=== PATIENT | male | born 1985 | race Hispanic/Latino ===

== ENCOUNTER → 2020-07-30 11:05 | Outpatient (CLI) | payer OTHER, SELFPAY ==
--- NOTE | 2020-07-30 | DI.MRI.S_ITS ---
PROCEDURE: MR HIP RT WO CON INDICATIONS: PAIN IN RIGHT HIP TECHNIQUE: Noncontrast coronal T1 spin echo and STIR through the bony pelvis. Coronal and axial T2 fast spin echo with fat saturation, sagittal T1 spin echo, and oblique axial T2 fast spin echo with fat saturation through the hip. COMPARISON: None. FINDINGS: Image quality: Excellent. Bones and joints: There is right hip joint osteoarthritis with joint space narrowing, subchondral sclerosis and marginal osteophyte formation. Prominence of right femoral head neck junction is also seen which can be seen in the case of cam type femoral acetabular impingement. No intraosseous lesions or fractures. No avascular necrosis of the femoral heads. The visualized lower lumbar spine appears normally aligned. Tendons and ligaments: The gluteus medius and minimus tendons appear intact, without associated muscle atrophy. The nearby proximal iliotibial band also appears intact. The iliopsoas tendon appears intact, without adjacent bursal fluid collections or evidence for impingement syndrome. The origin of the hamstring tendon is intact at the ischial tuberosity, as well as the associated sacrotuberous ligament. The straight and reflected heads of the rectus femoris muscle origin appear intact, as well as the conjoint tendon. The ligamentum teres appears intact where visualized. Labrum and cartilage: Thinning of articulating cartilages of the femoral head is seen. In the absence of intra-articular contrast, there is suggestion of superior anterior right hip labral tear with tiny adjacent 2-3 millimeter perilabral cyst. The alpha angle of the femur is within normal limits at less than 55 degrees. Soft tissues: Visualized muscles demonstrate normal bulk and internal signal. Quadratus femoris muscle demonstrates no internal edema to suggest ischiofemoral impingement. The proximal sciatic neurovascular bundle appears normal adjacent to the hamstring tendons. No free pelvic fluid. Bladder wall thickness is normal. Genitourinary structures and bowel loops appear normal where visualized. IMPRESSION: 1. Mild to moderate right hip joint osteoarthritis. No fracture or dislocation. No evidence of avascular necrosis of femoral head. 2. Prominence of right femoral head neck junction which can be associated with CAM type femoral acetabular impingement. 3. Suggestion of focal superior anterior right hip labral tear with adjacent tiny 2-3 millimeter perilabral cyst. Dictated by: Al Baptiste M.D. on 08/01/2020 at 10:06 Approved by: Al Baptiste M.D. on 08/01/2020 at 10:26
== END ==
PROVIDERS: Referring Provider Physician Assistant Surgical; Visit Provider Physician Assistant Surgical
DX: M25.551 Pain in right hip (principal); M16.11 Unilateral primary osteoarthritis, right hip
CPT/HCPCS: 73721

== ENCOUNTER 2021-09-19 15:12 | Emergency (ER) | payer OTHER, SELFPAY ==
[2021-09-19 15:39] VITALS: BP 144/79; PULSE 77; RESP 97; TEMP 36.7; O2SAT 97; BMI 29.4
[2021-09-19 16:21] LABS: COVID19 -Nasal RAPID Negative (Negative)
--- NOTE | 2021-09-19 18:21 | ED_ITS ---
HPI - URI/Sore Throat <MILI Montesinos - Last Filed: 09/19/21 18:34> General Chief Complaint: Upper Respiratory Symptoms Stated Complaint: wants covid test Time Seen by Provider: 09/19/21 17:02 Source: patient Mode of arrival: Ambulatory Limitations: no limitations History of Present Illness HPI Narrative: The the patient is a 36-year-old male nonsmoker who denies pertinent medical history presents with a chief complaint of needing a COVID test. His recently return from taking care of her grandfather who is COVID positive. Is fully vaccinated with Pfizer, but has not had a booster yet. He has had coughing congestion and fatigue. His symptoms started about 3 days ago, but he lost his taste and smell yesterday. He states he feels better, but is concerned about going to work especially given that his is still sick and her direct COVID exposure. Review of Systems <JENNIFER Montesinos - Last Filed: 09/19/21 18:34> Review of Systems Narrative: GENERAL: See HPI HEENT: Denies sinus pain, ear pain, sore throat, difficulty swallowing, d izziness. RESPIRATORY: See HPI CARDIOVASCULAR: Denies chest pain, palpitations, orthopnea, edema, GASTROINTESTINAL: Denies nausea, vomiting, abdominal pain, diarrhea, constipation, melena. : Denies dysuria, frequency, incontinence, hematuria, urinary retention. MUSCULOSKELETAL: denies weakness, joint pain, or bony pain SKIN: Denies rash, skin lesions, or other NEUROLOGIC: Denies weakness, headache, numbness, change in speech, confusion, seizures, incoordination. PSYCHIATRIC: No concerning psychosocial issues. 12 point review of systems is negative except for those stated above Patient History <MILI Montesinos - Last Filed: 09/19/21 18:34> Social History Smoking Status: Never smoker Smoking Status: Never smoker Substance Use Type: does not use Exam <MILI Montesinos Last Filed: 09/19/21 18:34> Narrative Exam Narrative: GENERAL: This is a well-nourished, well-developed patient, in no acute distress HEAD: Atraumatic. Normocephalic. No temporal or scalp tenderness. EYES: Pupils equal round and reactive. Extraocular motions intact. No scleral icterus. No injection or drainage. ENT: Nose without bleeding, purulent drainage or septal hematoma. Throat without erythema, tonsillar hypertrophy or exudate. Uvula midline. Airway patent. NECK: Trachea midline. No JVD or lymphadenopathy. Supple, nontender, no meningeal signs. CARDIOVASCULAR: Regular rate and rhythm RESPIRATORY: Clear to auscultation. Breath sounds equal bilaterally. No wheezes, rales, or rhonchi. Occasional dry cough. No increased respiratory effort. GASTROINTESTINAL: Abdomen soft, non-tender, nondistended. No hepato- splenomegaly, or palpable masses. No guarding. EXTREMITIES: No clubbing, cyanosis, or edema. No joint tenderness, effusion, or edema noted. NEURO: AOx3. SKIN: No rash or erythema on visible skin Initial Vital Signs Initial Vital Signs: Vital Signs Temperature 98.0 F 09/19/21 15:39 Pulse Rate 77 09/19/21 15:39 Respiratory Rate 97 H 09/19/21 15:39 Blood Pressure 144/79 H 09/19/21 15:39 Pulse Oximetry 97 09/19/21 15:39 <Tone Helm MD - Last Filed: 09/25/21 12:21> Initial Vital Signs Initial Vital Signs: Vital Signs Temperature 98.0 F 09/19/21 15:39 Pulse Rate 77 09/19/21 15:39 Respiratory Rate 97 H 09/19/21 15:39 Blood Pressure 144/79 H 09/19/21 15:39 Pulse Oximetry 97 09/19/21 15:39 Course <MILI Montesinos - Last Filed: 09/19/21 18:34> Orders Ordered: ED Orders 09/19/21 15:47 COVID19 -Nasal swab/Pre-Proc Stat Vital Signs Vital signs: Vital Signs - 8 hr 09/19/21 15:39 Temperature 98.0 F Pulse Rate 77 Respiratory Rate 97 H Blood Pressure 144/79 H Pulse Oximetry 97 <Tone Helm MD - Last Filed: 09/25/21 12:21> Orders Ordered: ED Orders 09/19/21 15:47 COVID19 -Nasal swab/Pre-Proc Stat Vital Signs Vital signs: Vital Signs - 8 hr 09/19/21 15:39 Temperature 98.0 F Pulse Rate 77 Respiratory Rate 97 H Blood Pressure 144/79 H Pulse Oximetry 97 [facility] - URI/Sore Throat <Ellen Fisher, C[employer] ROOM CLERK-BC - Last Filed: 09/19/21 18:34> Lab Data Labs: Lab Results 09/19/21 Range/Units 15:47 SARS-CoV-2 (PCR) Negative (Negative) MDM Narrative Medical decision making narrative: The patient is a 36-year-old male who presents with a chief complaint of COVID exposure and possible COVID. He does test negative today, however he was exposed and has symptoms. Thus I did give him a work note. Discussed at length rest, pushing fluids, use [id number] medications as needed and able. Discussed come back to ER for acute concerns. Patient has no questions or concerns upon discharge and states understanding of return precautions as well as follow-up care. <Tone Helm MD - Last Filed: 09/25/21 12:21> Lab Data Labs: Lab Results 09/19/21 Range/Units 15:47 SARS-CoV-2 (PCR) Negative (Negative) Discharge Plan Departure Patient Disposition: Home Clinical Impression: Upper respiratory infection Instructions: DI for Viral Upper Respiratory Infection -- Adult, Coronavirus Disease 2019, Can COVID-19 be prevented? Activity Restrictions/Additional Instructions: Thank you for trusting us with your care today. As discussed, you tested negative for COVID today. However given that your exposed and had symptoms such as loss of taste and smell I have given you a work note for several days off so you can quarantine. Please rest at home, push fluids etcetera. Please come back to the emergency department for any acute concerns. Stand Alone Forms: Work Release Note <Tone Heml MD - Last Filed: 09/25/21 12:21> Cosign ED Attending Cosignature Attestation: I was immediately available in the department for consultation. This documentation has been reviewed and I agree with assessment and plan. Supervised by Tone Helm MD
== END 2021-09-19 18:05 | disposition home or self-care (01) ==
PROVIDERS: Emergency Medicine; Emergency Provider Nurse Practitioner Family
DX: J06.9 Acute upper respiratory infection, unspecified (principal); Z20.822 Contact with and (suspected) exposure to COVID-19
CPT/HCPCS: 87635; 99281; 99282; C9803

== ENCOUNTER 2023-10-02 10:09 | Emergency (ER) | payer OTHER, SELFPAY ==
[2023-10-02 10:11] VITALS: BP 136/82; PULSE 98; RESP 16; TEMP 36.4; O2SAT 99; BMI 30.1
== END 2023-10-02 10:28 | disposition left against medical advice (07) ==
PROVIDERS: Emergency Provider Emergency Medicine
CPT/HCPCS: 99281

== ENCOUNTER 2024-07-01 11:59 | Emergency (ER) | payer OTHER, SELFPAY ==
[2024-07-01 12:11] VITALS: BP 142/81; PULSE 109; RESP 20; TEMP 36.1; O2SAT 97; BMI 30.8
--- NOTE | 2024-07-01 12:41 | ED_ITS ---
HPI - General Adult General Chief complaint: Abdominal Pain Stated complaint: vomiting t-3, abd pain Time Seen by Provider: 07/01/24 12:41 Source: patient Mode of arrival: Family Vehicle History of Present Illness HPI narrative: 39-year-old gentleman presents with nausea, vomiting, abdominal pain. Symptoms started on the with pain vomiting and diarrhea. He is seen [facility]. Given Imodium for the diarrhea. He took 1 dose which resolve the diarrhea and then continued to follow the instructions to take 1 every 4 hours for a total of 10 doses. He has not had a bowel movement since then. He has passed a small amount of gas. Does not feel like he has stool in his rectum, increasing abdominal pain since the , has been unable to keep anything down, tried some apple juice this morning and that too came up. Presents with significant abdominal pain behaviors, not complaining of fevers chills chest pain shortness for breath or lower extremity edema Related Data Previous Rx's Medication Instructions Recorded metoclopramide HCl 10 mg tablet 10 mg PO Q6H PRN nausea and 07/01/24 vomiting #14 tabs oxycodone-acetaminophen 5 mg-325 1 tab PO Q6H PRN pain #10 tabs 07/01/24 mg tablet sennosides 15 mg tablet (Laxative 15 mg PO BID PRN constipation #10 07/01/24 (sennosides)) tabs Allergies Allergy/AdvReac Type Severity Reaction Status Date / Time No Known Drug Allergies Allergy Verified 10/02/23 10:11 Review of Systems Review of Systems Narrative: Pertinent positive and negative findings as per HPI Patient History Social History Smoking Status: Former smoker Smoking Status: Former smoker tobacco type: cigarettes alcohol intake frequency: other Substance Use Type: does not use Exam Initial Vital Signs Initial Vital Signs: Vital Signs Temperature 97.0 F L 07/01/24 12:11 Pulse Rate 109 H 07/01/24 12:11 Respiratory Rate 20 07/01/24 12:11 Blood Pressure 142/81 H 07/01/24 12:11 Pulse Oximetry 97 07/01/24 12:11 Oxygen Delivery Method Room Air 07/01/24 12:11 General: Healthy appearing, in obvious pain, able to participate completely with the history and physical HEENT: Moist mucous membranes, normal sclera with reactive pupils, Respiratory: Lungs are clear to auscultation, no wheezing no rales no rhonchi. Full and symmetrical air movement Cardiac: Slight tachycardia at 110 with no murmurs Abdomen: Soft, nondistended, diffusely tender with no rebound or guarding, no flank pain Skin: Warm and dry, no rashes Neurologic: Grossly neurologically intact with no obvious asymmetries or abnormalities Extremities: No trauma, well perfused Psych: Cooperative, appropriate insight and affect Course Orders Ordered: ED Orders 07/01/24 12:18 Comprehensive Metabolic Panel Stat Lipase Stat 07/01/24 12:45 Complete Blood Count AUTO DIFF Stat 07/01/24 12:49 CT abdomen pelvis w con Stat Ondansetron HCl (Ondansetron 4 Mg/2 Ml Inj) 4 mg IV NOW PRN PRN Reason: Nausea And Vomiting Last Admin: 07/01/24 13:27 Dose: 4 mg Documented By: YADIRA Ondansetron HCl (Ondansetron 4 Mg Odt) 4 mg PO NOW PRN PRN Reason: Nausea And Vomiting Discontinued Medications Bisacodyl (Bisacodyl 5 Mg Tablet) 10 mg PO NOW ONE Stop: 07/01/24 15:08 Last Admin: 07/01/24 15:19 Dose: 10 mg Documented By: AMANDA Hydromorphone HCl (Hydromorphone 1 Mg Inj) 0.5 mg IV NOW ONE Stop: 07/01/24 15:06 Last Admin: 07/01/24 15:18 Dose: 0.5 mg Documented By: AMANDA Sodium Chloride (Normal Saline 0.9%) 1,000 mls @ 1,000 mls/hr IV BOLUS ONE Stop: 07/01/24 16:04 Last Infusion: 07/01/24 16:15 Dose: Infused Documented By: Admin: 07/01/24 15:18 Dose: 1,000 mls/hr Documented By: AMANDA Vital Signs Vital signs: Vital Signs - 8 hr 07/01/24 12:11 07/01/24 13:23 07/01/24 14:34 Temperature 97.0 F L Pulse Rate 109 H 91 H 85 Respiratory Rate 20 22 18 Blood Pressure 142/81 H 138/89 130/90 Pulse Oximetry 97 98 98 Oxygen Delivery Method Room Air Room Air Room Air 07/01/24 16:02 Temperature Pulse Rate 75 Respiratory Rate 18 Blood Pressure 140/91 H Pulse Oximetry 98 Oxygen Delivery Method Room Air Medical Decision Making Lab Data 07/01/24 12:45 07/01/24 12:18 Labs: Lab Results 07/01/24 07/01/24 Range/Units 12:18 12:45 WBC 15.3 H (4.5-11.0) X10^3/uL RBC 5.20 (4.5-5.9) X10^6/uL Hgb 15.8 (13.5-17.5) g/dL Hct 46.3 (41-53) % MCV 88.9 (80-100) fL MCH 30.4 (26-34) PG MCHC 34.2 (30-36) % RDW 14.0 (11.6-14.8) % Plt Count 406 H (150-400) X10^3/uL Neut % (Auto) 71.6 (50-75) % Lymph % (Auto) 19.2 L (25-40) % [place] % (Auto) 8.1 (3-14) % Eos % (Auto) 0.3 L (2-4) % Baso % (Auto) 0.8 (0-2) % Neut # (Auto) 31263 H (4681-9294) /uL Lymph # (Auto) 3000 (3502-5203) /uL [place] # (Auto) 1200 H (0-900) /uL Eos # (Auto) 100 (0-450) /uL Baso # (Auto) 100 (0-100) /uL Sodium 135 L (137-145) mmol/L Potassium 3.3 L (3.4-5.1) mmol/L Chloride 97 L (98-107) mmol/L Carbon Dioxide 22 (22-32) mmol/L BUN 18 (9-20) mg/dL Creatinine 1.27 H (0.66-1.25) mg/dL Estimated GFR > 60 (>60) mL/min BUN/Creatinine Ratio 14.2 (6-22) Glucose 133 H (70-100) mg/dL Calcium 9.9 (8.4-10.2) mg/dL Total Bilirubin 1.6 H (0.2-1.3) mg/dL AST 40 (17-59) IU/L ALT 37 (<50) IU/L Alkaline Phosphatase 111 (38-126) U/L Total Protein 9.4 H (6.3-8.2) g/dL Albumin 5.1 H (3.5-5.0) g/dL Globulin 4.3 H (1.7-4.1) g/dL Albumin/Globulin Ratio 1.2 (1.0-2.8) Lipase 94 (23-300) U/L Imaging Data CT scan - abdomen/pelvis: Radiologist's Impression: PROCEDURE: CT ABDOMEN PELVIS W CON INDICATIONS: abdominal pain TECHNIQUE: After the administration of intravenous contrast, axial sections acquired from the lung bases to the pubic symphysis. Coronal and sagittal reformats were performed. For radiation dose reduction, the following was used: automated exposure control, adjustment of mA and/or kV according to patient size. COMPARISON: None. FINDINGS: Image quality: Diagnostic. Lower Chest: No significant findings. ABDOMEN: Liver: No solid mass. Diffuse fatty liver infiltration is noted. Gallbladder: No radiopaque gallstones or wall thickening. Biliary ducts: No biliary dilation. Pancreas: No ductal dilation. Spleen: Size is within normal limits. Incidental note is made of an accessory splenule along the hilum of the primary spleen. Adrenal Glands: No adrenal nodules. Kidneys and Ureters: No hydronephrosis. No solid mass. No complex renal cystic lesion which requires follow up. Stomach and Bowel: Moderate colonic wall thickening can be seen, particularly involving the descending colon, sigmoid colon, and the rectum. The volume of stool within the colon is not excessive. Mild distal colonic diverticula formation can be seen. No dilated loops of small bowel are seen. A normal appendix is noted, as on series 4, image 59. Peritoneum: No peritoneal abscess is seen. No abnormal intraperitoneal fluid. No free air. Ventral Wall: No significant ventral hernia. Abdominal Nodes: No retroperitoneal or mesenteric adenopathy by size criteria. Vessels: Aorta and inferior vena cava are normal in size. PELVIS: Pelvic Organs: Unremarkable. Bladder: No bladder wall thickening, accounting for underdistention. Pelvic Nodes: No enlarged lymph nodes. Miscellaneous: No inguinal hernias are seen. Bones: No aggressive osseous abnormality. There is transitional lumbar anatomy, with mild sacralization of the L5 level, left worse than right. IMPRESSION: Moderate distal colonic wall thickening can be seen. Please correlate with potential infectious and inflammatory causes of colitis. No findings of perforation or abscess can be seen. Normal appendix. Additional findings: Fatty liver infiltration Accessory splenule Mildly sacralized L5 level, left worse than right Dictated by: Sukh Wilcox M.D. on 07/01/2024 at 12:51 MDM Narrative Medical decision making narrative: CC: Nausea and vomiting, persistent abdominal pain Complicating co-morbidities: Seen at [facility] twice for similar findings. He did take a total of 10 tablets of Imodium for diarrhea, diarrhea resolved after the 1st tablet Data collected from: patient Medical records reviewed: Medical records from [facility] with previous ER visits related to similar complaints reviewed. Lab work was done that was reassuring. Imaging studies were Differential considered: Gastroenteritis, perforated bowel, appendicitis, bowel obstruction Exam documented above, pertinent findings include: Otherwise healthy appears to be in moderate amount of pain however abdomen is soft palpation. Remainder of exam is benign Lab Test results independently reviewed as above. Pertinent findings: Labs show white count at 15.3, comparison on 06/28 at [facility] was 10.3 Chemistries show slightly low potassium at 3.3. Creatinine is 1.27, comparison on June 29 is 1 1 Imaging studies independently reviewed: Moderate distal colonic wall thickening likely consistent with his viral gastroenteritis. Normal appendix. No other significant pathology. Reviewing this study independently he does have quite a bit of right-sided stool Treatments: A L of fluid Discussion: 39-year-old gentleman with likely initial gastroenteritis. Was given Imodium to help with symptoms. One dose was effective and he followed the instructions on the bottle and took another 9 doses and has not had a bowel movement since. I believe the majority of his pain now is from the significant stool in the right side of his colon. He does still have some mild thickening to the colon wall in the left. Nausea is still present. He has been given a L of fluid, Reglan for nausea control, he had Zofran at home. He is going to need laxatives to get his bowels to move and I think that laxatives to help with motility to combat the Imodium that he has been given are probably going to be more effective than MiraLax given the degree of nausea and difficulty with drinking that he is experiencing. At this time there is no indication for hospitalization, surgical consultation or additional imaging. Findings reviewed with the patient and he does understand. With the degree of pain he is having I am going to discharge him home with a small dose of Percocet and did review with him that this will make a constipation worse. Discharge Plan Departure Patient Disposition: Home Clinical Impression: Gastroenteritis, Acute constipation Instructions: DI for Viral Gastroenteritis -- Adult, DI for Constipation Activity Restrictions/Additional Instructions: Thank you for coming in today I think that the initial diagnosis of gastroenteritis as correct. The CT scan does show a bit of swelling in the colon wall on the left side that fits with a gastroenteritis. This should improve within the next few days You were treated appropriately with Imodium. Typically we recommend a single dose initially and then another dose each time you have a diarrheal stool. Thank you very much for following the instructions on the bottle and taking it every 4 hours. However, I believe that this is now caused significant slowing of your gut which is why you are so constipated with stool collecting on the right side causing the pain in your hiccups. In the emergency department you have received a L of fluid, Zofran and Dulcolax. I suspect that you are going to need more laxative to get your bowels to begin to move. With your associated nausea I think a simple pill laxative is going to be the easiest for you to tolerate. As soon as your bowels start moving and you have a bowel movement, you do not need to continue with the laxatives The nausea medicine that I am going to give you as called Reglan. This can sometimes also help with constipation but it can be effective with nausea as well I have given you a prescription for Percocet. This is a narcotic pain medication to help with the pain from the significant constipation. One of its side effects is worsening constipation. Please drink as much fluid as you are able to do If you find that you are getting worse please return to the ER Prescriptions: New oxycodone-acetaminophen 5-325 mg tablet 1 tab PO Q6H PRN (Reason: pain) Qty: 10 0RF metoclopramide HCl 10 mg tablet 10 mg PO Q6H PRN (Reason: nausea and vomiting) Qty: 14 0RF Laxative (sennosides) 15 mg tablet 15 mg PO BID PRN (Reason: constipation) Qty: 10 0RF Rx Instructions: do not continue after you have initial bowel movement Stand Alone Forms: Patient Portal/API
--- NOTE | 2024-07-01 12:49 | DI.CT.S_ITS ---
PROCEDURE: CT ABDOMEN PELVIS W CON INDICATIONS: abdominal pain TECHNIQUE: After the administration of intravenous contrast, axial sections acquired from the lung bases to the pubic symphysis. Coronal and sagittal reformats were performed. For radiation dose reduction, the following was used: automated exposure control, adjustment of mA and/or kV according to patient size. COMPARISON: None. FINDINGS: Image quality: Diagnostic. Lower Chest: No significant findings. ABDOMEN: Liver: No solid mass. Diffuse fatty liver infiltration is noted. Gallbladder: No radiopaque gallstones or wall thickening. Biliary ducts: No biliary dilation. Pancreas: No ductal dilation. Spleen: Size is within normal limits. Incidental note is made of an accessory splenule along the hilum of the primary spleen. Adrenal Glands: No adrenal nodules. Kidneys and Ureters: No hydronephrosis. No solid mass. No complex renal cystic lesion which requires follow up. Stomach and Bowel: Moderate colonic wall thickening can be seen, particularly involving the descending colon, sigmoid colon, and the rectum. The volume of stool within the colon is not excessive. Mild distal colonic diverticula formation can be seen. No dilated loops of small bowel are seen. A normal appendix is noted, as on series 4, image 59. Peritoneum: No peritoneal abscess is seen. No abnormal intraperitoneal fluid. No free air. Ventral Wall: No significant ventral hernia. Abdominal Nodes: No retroperitoneal or mesenteric adenopathy by size criteria. Vessels: Aorta and inferior vena cava are normal in size. PELVIS: Pelvic Organs: Unremarkable. Bladder: No bladder wall thickening, accounting for underdistention. Pelvic Nodes: No enlarged lymph nodes. Miscellaneous: No inguinal hernias are seen. Bones: No aggressive osseous abnormality. There is transitional lumbar anatomy, with mild sacralization of the L5 level, left worse than right. IMPRESSION: Moderate distal colonic wall thickening can be seen. Please correlate with potential infectious and inflammatory causes of colitis. No findings of perforation or abscess can be seen. Normal appendix. Additional findings: Fatty liver infiltration Accessory splenule Mildly sacralized L5 level, left worse than right Dictated by: Sukh Wilcox M.D. on 07/01/2024 at 12:51 Approved by: Sukh Wilcox M.D. on 07/01/2024 at 12:54
[2024-07-01 13:02] LABS: Add Manual Diff / Slide Review NO; Basophils Absolute Auto 100 /uL (0-100); Basophils Percent Auto 0.8 % (0-2); Eosinophils Absolute Auto 100 /uL (0-450); Eosinophils Percent Auto 0.3 % (2-4); Hematocrit 46.3 % (41-53); Hemoglobin 15.8 g/dL (13.5-17.5); Lymphocytes Absolute Auto 3000 /uL (1100-4500); Lymphocytes Percent Auto 19.2 % (25-40); Mean Corpuscular HGB Conc 34.2 % (30-36); Mean Corpuscular Hemoglobin 30.4 PG (26-34); Mean Corpuscular Volume 88.9 fL (80-100); Monocytes Absolute Auto 1200 /uL (0-900); Monocytes Percent Auto 8.1 % (3-14); Neutrophils Absolute Auto 11000 /uL (1500-7000); Neutrophils Percent Auto 71.6 % (50-75); Platelet Count 406 X10^3/uL (150-400); White Blood Cell Count 15.3 X10^3/uL (4.5-11.0)
[2024-07-01 13:13] LABS: Alanine Aminotransferase 37 IU/L (<50); Albumin 5.1 g/dL (3.5-5.0); Albumin Globulin Ratio 1.2 (1.0-2.8); Alkaline Phosphatase 111 U/L (38-126); Aspartate Aminotransferase 40 IU/L (17-59); BUN Creatinine Ratio 14.2 (6-22); Bilirubin Total 1.6 mg/dL (0.2-1.3); Blood Urea Nitrogen 18 mg/dL (9-20); Calcium 9.9 mg/dL (8.4-10.2); Carbon Dioxide 22 mmol/L (22-32); Chloride 97 mmol/L (98-107); Estimated Glomerular Filt Rate > 60 mL/min (>60); Globulin 4.3 g/dL (1.7-4.1); Glucose 133 mg/dL (70-100); HEMOLYSIS < 15 (0-50); Lipase 94 U/L (23-300); Potassium 3.3 mmol/L (3.4-5.1); Sodium 135 mmol/L (137-145); Total Protein 9.4 g/dL (6.3-8.2)
[2024-07-01 13:23] VITALS: BP 138/89; PULSE 91; RESP 22; O2SAT 98
[2024-07-01] MEDS: ONDANSETRON 4 MG/2 ML INJ IV (13:27)
[2024-07-01 14:34] VITALS: BP 130/90; PULSE 85; RESP 18; O2SAT 98
[2024-07-01] MEDS: SODIUM CHLORIDE 0.9% 1,000 ML 1000 ML IV (15:18)
[2024-07-01] MEDS: HYDROMORPHONE 1 MG INJ 0.5 MG IV (15:18)
[2024-07-01] MEDS: BISACODYL 5 MG TABLET 10 MG PO (15:19)
[2024-07-01 16:02] VITALS: BP 140/91; PULSE 75; RESP 18; O2SAT 98
== END 2024-07-01 16:27 | disposition home or self-care (01) ==
PROVIDERS: Emergency Provider Emergency Medicine
DX: K52.9 Noninfective gastroenteritis and colitis, unspecified (principal); K59.00 Constipation, unspecified; R11.2 Nausea with vomiting, unspecified
CPT/HCPCS: 36415; 74177; 80053; 83690; 85025; 96361; 96374; 96375; 99284; J1171; J2405; Q9967

== ENCOUNTER 2024-08-15 18:30 | Emergency (ER) | payer OTHER, SELFPAY ==
[2024-08-15 18:31] VITALS: BP 128/75; PULSE 85; RESP 14; TEMP 36.8; O2SAT 96; BMI 29.4
[2024-08-15 18:34] VITALS: BP 128/75
[2024-08-15 18:35] VITALS: PULSE 85; O2SAT 96
--- NOTE | 2024-08-15 18:42 | DI.US.S_ITS ---
PROCEDURE: US ABDOMEN LIMITED INDICATIONS: RUQ abd pain TECHNIQUE: Real-time scanning was performed of the abdominal and retroperitoneal organs, with image documentation. COMPARISON: , CT, CT ABDOMEN PELVIS W CON, 07/01/2024, 13:06. FINDINGS: Liver: Liver is normal in size and t diffuse increased in echogenicity with posterior acoustic attenuation. Hepatopetal flow seen in the main portal vein. Gallbladder: No gallstones. No wall thickening. No pericholecystic edema. Negative sonographic Magallon's sign. Biliary ducts: Intrahepatic bile ducts are non-dilated. Extrahepatic bile duct caliber measures for mm. Normal is 6-7 mm or less in diameter, or 10 mm or less post-cholecystectomy. Pancreas: Not well visualized due to overlying bowel gas. Miscellaneous: No free abdominal fluid. IMPRESSION: Diffuse severely increased hepatic echogenicity is nonspecific, but most commonly encountered in the setting of severe hepatic steatosis. However, other causes of hepatocellular disease are not excluded. Recommend clinical correlation. Approved by: Harvey Espinosa M.D. on 08/15/2024 at 20:13
--- NOTE | 2024-08-15 19:02 | ED_ITS ---
HPI - Abdominal Pain General Chief Complaint: Abdominal Pain Stated Complaint: R Side Pain, Vomiting Time Seen by Provider: 08/15/24 19:02 Source: patient Mode of arrival: Ambulatory History of Present Illness HPI narrative: Patient is a 39-year-old male no significant past medical history presents to the emergency department for evaluation of right upper quadrant abdominal pain. States that he has had associated nausea and vomiting. States that it started approximately 3-4 hours ago nothing making it better or worse. States that he was also worried because he noted possible blood in his vomit. States that it looked a little bright red, states that he also rinses mouth and tasted a ?metallic taste. Patient not on any blood thinners no other complaints at this time. No Trauma no falls Related Data Previous Rx's Medication Instructions Recorded metoclopramide HCl 10 mg tablet 10 mg PO Q6H PRN nausea and 07/01/24 vomiting #14 tabs oxycodone-acetaminophen 5 mg-325 1 tab PO Q6H PRN pain #10 tabs 07/01/24 mg tablet sennosides 15 mg tablet (Laxative 15 mg PO BID PRN constipation #10 07/01/24 (sennosides)) tabs famotidine 20 mg tablet (Pepcid) 20 mg PO DAILY 1 month #30 tabs 08/15/24 ondansetron 4 mg disintegrating 4 mg PO Q8H PRN nausea and 08/15/24 tablet vomiting 5 days #15 tabs Allergies Allergy/AdvReac Type Severity Reaction Status Date / Time No Known Drug Allergies Allergy Verified 08/15/24 18:39 Review of Systems Review of Systems Narrative: General: Denies fever, chills, weight loss HEENT: Denies headache, eye drainage, eye irritation, head trauma, sore throat, voice change Cardiovascular: Denies any chest pain, palpitations, shortness of breath, tachycardia Respiratory: Denies any shortness of breath, cough, wheeze, stridor GI/: D positive abdominal pain, nausea, vomiting, denies diarrhea, bright red blood per rectum, melanotic stools, urinary frequency, urinary retention, dysuria, hematuria MSK: Denies any joint pain, muscle pains, swelling Skin: Denies any rashes, lesions, discoloration Neuro: Denies any headache, lightheadedness, dizziness, fainting, weakness Psych: Denies SI/HI Patient History Social History Smoking Status: Former smoker Smoking Status: Former smoker tobacco type: cigarettes alcohol intake frequency: other Exam Narrative Exam Narrative: General: Cooperative, comfortable, well-developed, not in acute distress HEENT: Normocephalic, atraumatic, PERRLA, normal sclera, eyelids normal, Neck: Active full range of motion, atraumatic Chest: Normal to inspection, negative crepitus, no overlying erythema ecchymosis Respiratory: Normal respiratory effort, not in acute respiratory distress, clear to auscultation bilaterally negative cough, wheeze, tachypnea, rhonchi, rales Cardiology: Regular rate rhythm negative gallop, murmur, rubs GI/: Normal to inspection, soft, nonrigid, mild tenderness to palpation of the right upper quadrant, exam deferred MSK: Full range of active range of motion of all 4 extremities, atraumatic Skin: No rashes lesions noted Neuro: Alert awake oriented x3, moves all 4 extremities spontaneously, cranial nerves intact, able to answer all questions appropriately follows commands appropriately Psych: Cooperative, negative suicidal or homicidal ideations Initial Vital Signs Initial Vital Signs: Vital Signs Temperature 98.2 F 08/15/24 18:31 Pulse Rate 85 08/15/24 18:31 Respiratory Rate 14 08/15/24 18:31 Blood Pressure 128/75 08/15/24 18:31 Pulse Oximetry 96 08/15/24 18:31 Oxygen Delivery Method Room Air 08/15/24 18:31 Course Orders Ordered: ED Orders 08/15/24 18:42 US abdomen limited Stat 08/15/24 18:47 Complete Blood Count AUTO DIFF Stat Comprehensive Metabolic Panel Stat Lipase Stat Ondansetron HCl (Ondansetron 4 Mg/2 Ml Inj) 4 mg IV NOW PRN PRN Reason: Nausea And Vomiting Ondansetron HCl (Ondansetron 4 Mg Odt) 4 mg PO NOW PRN PRN Reason: Nausea And Vomiting Vital Signs Vital signs: Vital Signs - 8 hr 08/15/24 18:31 Temperature 98.2 F Pulse Rate 85 Respiratory Rate 14 Blood Pressure 128/75 Pulse Oximetry 96 Oxygen Delivery Method Room Air MDM - Abdominal Pain Differential Diagnosis Differential diagnosis: Likely abdominal pain, gastroenteritis, pancreatitis and other (Cholelithiasis, cholecystitis) Lab Data 08/15/24 18:47 08/15/24 18:47 Labs: Lab Results 08/15/24 Range/Units 18:47 WBC 7.9 (4.5-11.0) X10^3/uL RBC 4.67 (4.5-5.9) X10^6/uL Hgb 14.3 (13.5-17.5) g/dL Hct 41.8 (41-53) % MCV 89.6 (80-100) fL MCH 30.6 (26-34) PG MCHC 34.2 (30-36) % RDW 13.5 (11.6-14.8) % Plt Count 353 (150-400) X10^3/uL Neut % (Auto) 57.5 (50-75) % Lymph % (Auto) 33.1 (25-40) % [place] % (Auto) 6.0 (3-14) % Eos % (Auto) 2.1 (2-4) % Baso % (Auto) 1.3 (0-2) % Neut # (Auto) 4600 (3418-1636) /uL Lymph # (Auto) 2600 (7705-5910) /uL [place] # (Auto) 500 (0-900) /uL Eos # (Auto) 200 (0-450) /uL Baso # (Auto) 100 (0-100) /uL Sodium 137 (137-145) mmol/L Potassium 3.7 (3.4-5.1) mmol/L Chloride 107 (98-107) mmol/L Carbon Dioxide 23 (22-32) mmol/L BUN 16 (9-20) mg/dL Creatinine 1.11 (0.66-1.25) mg/dL Estimated GFR > 60 (>60) mL/min BUN/Creatinine Ratio 14.4 (6-22) Glucose 91 (70-100) mg/dL Calcium 9.4 (8.4-10.2) mg/dL Total Bilirubin 0.5 (0.2-1.3) mg/dL AST 39 (17-59) IU/L ALT 39 (<50) IU/L Alkaline Phosphatase 78 (38-126) U/L Total Protein 8.3 H (6.3-8.2) g/dL Albumin 4.5 (3.5-5.0) g/dL Globulin 3.8 (1.7-4.1) g/dL Albumin/Globulin Ratio 1.2 (1.0-2.8) Lipase 161 (23-300) U/L Imaging Data US - abdomen: Radiologist's Impression: [address] [address] Ultrasound Report Signed Patient: Ramirez Lora MR#: [id number] : 1985 Acct:[id number] Age/Sex: 39 / M Date of Service: 08/15/24 Loc: ED Accession Number: [id number] Procedure: US abdomen limited Ordering Provider: Butch Alonzo D.O. PROCEDURE: US ABDOMEN LIMITED INDICATIONS: RUQ abd pain TECHNIQUE: Real-time scanning was performed of the abdominal and retroperitoneal organs, with image documentation. COMPARISON: [facility], CT, CT ABDOMEN PELVIS W CON, 07/01/2024, 13:06. FINDINGS: Liver: Liver is normal in size and t diffuse increased in echogenicity with posterior acoustic attenuation. Hepatopetal flow seen in the main portal vein. Gallbladder: No gallstones. No wall thickening. No pericholecystic edema. Negative sonographic Magallon's sign. Biliary ducts: Intrahepatic bile ducts are non-dilated. Extrahepatic bile duct caliber measures for mm. Normal is 6-7 mm or less in diameter, or 10 mm or less post-cholecystectomy. Pancreas: Not well visualized due to overlying bowel gas. Miscellaneous: No free abdominal fluid. IMPRESSION: Diffuse severely increased hepatic echogenicity is nonspecific, but most commonly encountered in the setting of severe hepatic steatosis. However, other causes of hepatocellular disease are not excluded. Recommend clinical correlation. MDM Narrative Medical decision making narrative: 39-year-old male no past medical history presents for right upper quadrant abdominal pain nausea vomiting for 3 hours nothing making it better or worse. Patient had lab work imaging performed here in the emergency department, ultrasound showing hepatic steatosis. Patient without any leukocytosis. Patient with unremarkable Chem panel, no elevation in LFTs bilirubin. Patient with improved symptoms after administration medication here, patient will be discharged home with outpatient follow up, strict return precautions given verbalized understanding of this and is being discharged home with outpatient follow up Discharge Plan Departure Patient Disposition: Home Clinical Impression: Fatty liver Activity Restrictions/Additional Instructions: Please read the discharge instructions sheet carefully and bring all papers to all doctor follow-up visits, as it may contain information that your doctor may want to see. Disease processes change and evolve, if your symptoms worsen or if you develop any new symptoms that are concerning to you please return for evaluation. Your evaluation today does not show any evidence of any life- threatening/serious illnesses requiring admission to the hospital or surgery. Please follow-up with your doctor for re-evaluation in approximately 1 day. Seek immediate medical attention for any worrisome symptoms. *If you do not have a primary care provider please contact the [facility] Resource line at [phone]. They will ask some questions about your medical history and help get you set up with a doctor in the community. Prescriptions: New ondansetron 4 mg tablet,disintegrating 4 mg PO Q8H PRN (Reason: nausea and vomiting) 5 Days Qty: 15 0RF famotidine [Pepcid] 20 mg tablet 20 mg PO DAILY 30 Days Qty: 30 0RF No Action oxycodone-acetaminophen 5-325 mg tablet 1 tab PO Q6H PRN (Reason: pain) Qty: 10 0RF metoclopramide HCl 10 mg tablet 10 mg PO Q6H PRN (Reason: nausea and vomiting) Qty: 14 0RF Laxative (sennosides) 15 mg tablet 15 mg PO BID PRN (Reason: constipation) Qty: 10 0RF Rx Instructions: do not continue after you have initial bowel movement Stand Alone Forms: Patient Portal/API/Survey
[2024-08-15 19:04] LABS: Add Manual Diff / Slide Review NO; Basophils Absolute Auto 100 /uL (0-100); Basophils Percent Auto 1.3 % (0-2); Eosinophils Absolute Auto 200 /uL (0-450); Eosinophils Percent Auto 2.1 % (2-4); Hematocrit 41.8 % (41-53); Hemoglobin 14.3 g/dL (13.5-17.5); Lymphocytes Absolute Auto 2600 /uL (1100-4500); Lymphocytes Percent Auto 33.1 % (25-40); Mean Corpuscular HGB Conc 34.2 % (30-36); Mean Corpuscular Hemoglobin 30.6 PG (26-34); Mean Corpuscular Volume 89.6 fL (80-100); Monocytes Absolute Auto 500 /uL (0-900); Neutrophils Absolute Auto 4600 /uL (1500-7000); Neutrophils Percent Auto 57.5 % (50-75); Platelet Count 353 X10^3/uL (150-400); Red Blood Cell Count 4.67 X10^6/uL (4.5-5.9); Red Cell Distribution Width 13.5 % (11.6-14.8); White Blood Cell Count 7.9 X10^3/uL (4.5-11.0)
[2024-08-15 19:08] LABS: Alanine Aminotransferase 39 IU/L (<50); Albumin 4.5 g/dL (3.5-5.0); Albumin Globulin Ratio 1.2 (1.0-2.8); Alkaline Phosphatase 78 U/L (38-126); Aspartate Aminotransferase 39 IU/L (17-59); BUN Creatinine Ratio 14.4 (6-22); Bilirubin Total 0.5 mg/dL (0.2-1.3); Blood Urea Nitrogen 16 mg/dL (9-20); Calcium 9.4 mg/dL (8.4-10.2); Carbon Dioxide 23 mmol/L (22-32); Chloride 107 mmol/L (98-107); Estimated Glomerular Filt Rate > 60 mL/min (>60); Globulin 3.8 g/dL (1.7-4.1); Glucose 91 mg/dL (70-100); HEMOLYSIS 23 (0-50); Lipase 161 U/L (23-300); Potassium 3.7 mmol/L (3.4-5.1); Sodium 137 mmol/L (137-145); Total Protein 8.3 g/dL (6.3-8.2)
[2024-08-15 20:35] VITALS: PULSE 71; O2SAT 99
[2024-08-15 20:36] VITALS: BP 106/53; PULSE 77; O2SAT 98
== END 2024-08-15 20:40 | disposition home or self-care (01) ==
PROVIDERS: Emergency Medicine; Emergency Provider Student in an Organized Health Care Education/Training Program
DX: K76.0 Fatty (change of) liver, not elsewhere classified (principal); R11.2 Nausea with vomiting, unspecified
CPT/HCPCS: 36415; 76705; 80053; 83690; 85025; 99283; 99284